=== PATIENT | female | born 1960 | race Caucasian/White ===

== ENCOUNTER 2018-08-02 10:21 | Emergency (ER) | payer OTHER ==
[~2018-08-02] VITALS: Ht 157.5 cm; Wt 56.3 kg
[~2018-08-02 10:21] MED LIST: LOSA50TA14 PO; METF100010 PO; NAPR-688 PO; RANI150T35 PO
[2018-08-02 10:25] VITALS: BP 110/60; PULSE 80; RESP 20; Ht 157.5 cm; Wt 56.3 kg
[2018-08-02] MEDS ORDERED: KETOROLAC 60 MG INJ IM STA (10:36)
[2018-08-02] MEDS ORDERED: NAPR-985 PO (10:38)
[2018-08-02] MEDS ORDERED: PROM6.2515 PO (10:38)
[2018-08-02] MEDS ORDERED: AZIT250T PO (10:38)
--- NOTE | 2018-08-02 13:24 | ERD ---
ER Documentation Chief Complaint Chief Complaint pt is bib family with c/o fever, "cold is stuck in chest" cough x 4 days HPI 57-year-old female presenting with tactile fever and productive cough times 4 days. Patient has no fevers. Patient took NyQuil. Patient has had some generalized muscle pain. Medical history is diabetes and hypertension. Insulin-dependent. Surgical history denies. NKDA. Social history denies ROS All systems reviewed and are negative except as per history of present illness. Medications Home Meds Active Scripts Promethazine Hcl* (Promethazine Hcl* Syrup) 6.25 Mg/5 Ml Syrup, 6.25 MG PO Q6H PRN for COUGH, #100 ML Prov:OTTO RODRIGUEZ PA-C 08/02/18 Naproxen* (Naprosyn*) 500 Mg Tablet, 500 MG PO BID PRN for PAIN AND/OR INFLAMMATION, #30 TAB Prov:OTTO RODRIGUEZ PA-C 08/02/18 Azithromycin* (Zithromax*) 250 Mg Tablet, 250 MG PO .JaninaPACK DIRECTED, #6 TAB TAKE 500 MG (2 TABS) THE FIRST DAY THEN 250 MG (1 TAB) DAYS 2-5 Prov:OTTO RODRIGUEZ PA-C 08/02/18 Naproxen* (Naproxen*) 500 Mg Tablet, 500 MG PO BID PRN for PAIN, #10 TAB Prov:VICKY LOCO DO 10/16/15 Ranitidine Hcl* (Zantac*) 150 Mg Tablet, 150 MG PO BID PRN for EPIGASTRIC PAIN, #30 TAB Prov:VICKY LOCO DO 10/16/15 Reported Medications Metformin Hcl* (Metformin Hcl*) 1,000 Mg Tablet, 1000 MG PO WITH BREAKFAST, #30 TAB 10/16/15 Losartan Potassium* (Losartan Potassium*) 50 Mg Tablet, 50 MG PO DAILY, TAB 10/16/15 Allergies Allergies: Coded Allergies: No Known Allergy (Unverified , 10/16/15) PMhx/Soc History of Surgery: Yes (cataract 08/17) Anesthesia Reaction: No Hx Neurological Disorder: No Hx Respiratory Disorders: No Hx Cardiac Disorders: Yes (Hypertension) Hx Psychiatric Problems: No Hx Miscellaneous Medical Probl: Yes (Diabetes) Hx Alcohol Use: No Hx Substance Use: No Hx Tobacco Use: No Smoking Status: Never smoker FmHx Family History: No diabetes, No coronary disease, No other Physical Exam Vitals Vital Signs Date Temp Pulse Resp B/P (MAP) Pulse Ox O2 O2 Flow FiO2 Time Delivery Rate 08/02/18 97.7 80 20 110/60 100 10:25 (77) Physical Exam GENERAL: The patient is well-appearing, well-nourished, in no acute distress HEENT: Atraumatic. Conjunctivae are pink. Pupils equal, round, and reactive to light. There is no scleral icterus. Tympanic membranes clear bilaterally. Oropharynx clear. CHEST: Clear to auscultation bilaterally. There are no rales, wheezes or rhonchi. HEART: Regular rate and rhythm. No murmurs, clicks, rubs or gallops. Results 24 hrs Current Medications Medications Dose Sig/Marian Start Time Status Last (Trade) Ordered Route PRN Stop Time Admin Dose Reason Admin Ketorolac 60 mg ONCE STAT 08/02/18 DC 08/02/18 Tromethamine IM 10:36 08/02/18 10:46 (Toradol) 10:37 Procedures/MDM MDM: 57-year-old female presents with cough. I have low suspicion for meningitis or sepsis. Patient likely has bronchitis so we will treat with antibiotics given she has had symptoms persistently. Patient's vitals are stable and exam is non-concerning. Patient is discharged with stricter precautions and supportive medications. Patient is muscular skeletal exam is within normal limits. I have low suspicion for rhabdomyolysis or other muscular skeletal abnormality. Patient is discharged strict ER precautions. All questions answered to Departure Diagnosis: Primary Impression: Muscle strain Additional Impression: Common cold Condition: Stable Patient Instructions: Adult Self-Care for Colds, Muscle Strain, Extremity Referrals: COMMUNITY CLINICS YOU HAVE RECEIVED A MEDICAL SCREENING EXAM AND THE RESULTS INDICATE THAT YOU DO NOT HAVE A CONDITION THAT REQUIRES URGENT TREATMENT IN THE EMERGENCY DEPARTMENT. FURTHER EVALUATION AND TREATMENT OF YOUR CONDITION CAN WAIT UNTIL YOU ARE SEEN IN YOUR DOCTORS OFFICE WITHIN THE NEXT 1-2 DAYS. IT IS YOUR RESPONSIBILITY TO MAKE AN APPOINTMENT FOR FOLOW-UP CARE. IF YOU HAVE A PRIMARY DOCTOR --you should call your primary doctor and schedule an appointment IF YOU DO NOT HAVE A PRIMARY DOCTOR YOU CAN CALL OUR PHYSICIAN REFERRAL HOTLINE AT IF YOU CAN NOT AFFORD TO SEE A PHYSICIAN YOU CAN CHOSE FROM THE FOLLOWING COMMUNITY CLINICS [facility] [address] [facility] [address] [facility] [address] [facility] [address] [facility]. [facility] [address] [facility]. [facility] [address] Additional Instructions: FOLLOW UP WITH YOUR PRIMARY CARE PHYSICIAN TOMORROW.Return to this facility if you are not improving as expected. OTTO RODRIGUEZ PA-C Aug 02, 2018 13:24
== END 2018-08-02 11:20 | disposition home or self-care (01) ==
LOC: FTE 10:21
DX: J00 Acute nasopharyngitis [common cold] (principal); T14.8XXA Other injury of unspecified body region, initial encounter; I10 Essential (primary) hypertension; E11.9 Type 2 diabetes mellitus without complications; X58.XXXA Exposure to other specified factors, initial encounter; Y92.9 Unspecified place or not applicable; Z79.84 Long term (current) use of oral hypoglycemic drugs
CPT/HCPCS: 96372; J1885; Z7502